=== PATIENT | female | born 1950 | race Caucasian/White ===

== ENCOUNTER 2017-03-22 13:11 | Emergency (ER) | payer MEDICARE, MEDICAID ==
[2017-03-22 15:08] LABS: % BASOPHILS 0.6 % (0.0-2.0); % EOSINOPHILS 2.9 % (0.0-5.0); % LYMPHOCYTES 37.8 % (20.0-50.0); % MONOCYTES 11.3 % (2.0-10.0); % NEUTROPHILS 47.4 % (40.0-80.0); HEMATOCRIT 36.8 % (35.0-45.0); HEMOGLOBIN 12.7 gm/dL (11.7-16.1); MEAN CORPUSCULAR HGB CONC 34.4 pg (28.0-36.0); PLATELET COUNT 244 Th/cmm (150-400); RED BLOOD COUNT 3.96 Mil/cmm (3.80-5.20); RED CELL DISTRIBUTION WIDTH 12.5 % (11.5-20.0); WHITE BLOOD COUNT 6.3 Th/cmm (4.8-10.8)
--- NOTE | 2017-03-22 15:17 | ED Physician Chart ---
Chief Complaint/HPI - Patient Information Date Seen:: 03/22/17 Time Seen:: 15:05 Chief Complaint:: generalized weakness History of Present Illness:: [facility] for generalized weakness. She states she does not like her current prison facility. She complains of bilateral knee pain apparently secondary to frequent falling. Allergies:: Allergies Allergy/AdvReac Type Severity Reaction Status Date / Time No Known Allergies Allergy Verified 03/22/17 15:05 Vitals:: Vital Signs - 8 hr 03/22/17 14:48 Temp 98.1 F HR 69 RR 16 BP 125/65 O2 Sat % 99 Historian:: Patient Review:: Nurse's Note Reviewed, Transfer documents Reviewed Review of Systems - Review of Systems General/Constitutional: Weakness, Other (frequent falls) Skin: Skin lesions, Other (contusion both knees) Head: No headache, No light-headedness Eyes: No loss of vision, No diplopia ENT: No earache, No sore throat Neck: No neck pain Cardio Vascular: No chest pain, No palpitations Pulmonary: No SOB GI: No nausea, No vomiting G/U: No dysuria Musculoskeletal: No bone or joint pain Endocrine: No polyuria, No polydipsia Psychiatric: Prior psych history Hematopoietic: Bruising Allergic/Immuno: No urticaria Neurological: No syncope Past Medical History - Past Medical History Past Medical History: Asthma/COPD, Seizures, Thyroid disorder, Other (chronic pain syndrome; neuropathy) Family History: None Social History: Smoker, Alcohol Surgical History: other (right shoulder) Psychiatricy History: Bipolar Medication: Reviewed Family Medical History - Family Member Mother History Unknown: Yes Ethnicity: Non- Living Status: Hx Family Cancer: No Hx Family Coronary Artery Disease: No Hx Family Congestive Heart Failure: No Hx Family Hypertension: No Hx Family Stroke: No Hx Family Diabetes: No Hx Family Seizures: (Unknown) Hx Family Dementia: (Unknown) Hx Family AIDS: (Unknown) Hx Family HIV: No Hx Family COPD: (Unknown) Hx Family Hepatitis: (Unknown) Hx Family Psychiatric Problems: (Unknown) Hx Family Tuberculosis: (Unknown) Labs/Radiology/EKG Results - Lab Results Results: Laboratory Tests 03/22/17 15:00 WBC 6.3 RBC 3.96 Hgb 12.7 Hct 36.8 MCV 93.0 MCH 32.0 H MCHC Differential 34.4 RDW 12.5 Plt Count 244 MPV 7.0 Neutrophils % 47.4 Lymphocytes % 37.8 Monocytes % 11.3 H Eosinophils % 2.9 Basophils % 0.6 Laboratory Results - last 24 hr 03/22/17 03/22/17 15:00 15:00 WBC 6.3 RBC 3.96 Hgb 12.7 Hct 36.8 MCV 93.0 MCH 32.0 H MCHC Differential 34.4 RDW 12.5 Plt Count 244 MPV 7.0 Neutrophils % 47.4 Lymphocytes % 37.8 Monocytes % 11.3 H Eosinophils % 2.9 Basophils % 0.6 Sodium 136 Potassium 4.2 Chloride 103 Carbon Dioxide 27.4 Anion Gap 9.8 BUN 15 Creatinine 0.8 Est GFR ( Amer) > 60.0 Est GFR (Non-Af Amer) > 60.0 BUN/Creatinine Ratio 18.8 Glucose 100 Calcium 9.4 Magnesium 2.2 Assessment - Assessment General Assessment: I talked to Kassandra Haq's PA who agreed with the patient can return to her facility. She appears to have no acute problem that would require hospitalization. Although the final diagnosis will be COPD patient currently has no difficulty breathing. ED Septic Shock - . Is Septic Shock (SBP<90, OR Lactate>4 mmol\L) present?: No - <6hrs of presentation: Vital Signs: Vital Signs - 8 hr 03/22/17 14:48 Temp 98.1 F HR 69 RR 16 BP 125/65 O2 Sat % 99 Reassessment (Disposition) - Reassessment Reassessment Condition:: Unchanged - Diagnosis Diagnosis:: COPD - Aftercare/Follow up Instructions Aftercare/Follow-Up Instructions:: Refer to Discharge Instructions - Patient Disposition Discharge/Transfer:: Medical Malpractice Paralegal Care - SNF Condition at Disposition:: Stable, Unchanged
[2017-03-22 15:28] LABS: ANION GAP 9.8 (7.0-16.0); BUN - UREA NITROGEN 15 mg/dL (7-25); BUN/CREATININE RATIO 18.8; CALCIUM SERUM 9.4 mg/dL (8.6-10.3); CARBON DIOXIDE 27.4 mEq/L (21.0-31.0); CHLORIDE 103 mEq/L (98-107); CREATININE - SERUM 0.8 mg/dL (0.6-1.2); GLUCOSE 100 mg/dL (70-105); MAGNESIUM 2.2 mg/dL (1.9-2.7); POTASSIUM SERUM 4.2 mEq/L (3.5-5.1); SODIUM SERUM 136 mEq/L (136-145)
== END 2017-03-22 17:15 ==
LOC: ER 13:11
DX: J44.9 Chronic obstructive pulmonary disease, unspecified (principal); J45.909 Unspecified asthma, uncomplicated; E07.9 Disorder of thyroid, unspecified; F17.200 Nicotine dependence, unspecified, uncomplicated
CPT/HCPCS: 36415-UA; 80048-TC; 83735-TC; 85025-TC; Z7502